=== PATIENT | female | born 1960 | race Caucasian/White ===

== ENCOUNTER 2017-07-04 09:10 | Emergency (ER) | payer MEDICAID ==
[~2017-07-04] VITALS: Ht 160 cm; Wt 78.2 kg
[~2017-07-04 09:10] MED LIST: NOCURR
[2017-07-04] MEDS ORDERED: METHOCARBAMOL 500 MG TABLET PO ONE (10:30)
[2017-07-04] MEDS ORDERED: KETOROLAC TROMETHAMINE 30 MG/ML VIAL IM ONE (10:30)
[2017-07-04 11:16] VITALS: BP 136/78
== END 2017-07-04 11:19 | disposition home or self-care (01) ==
LOC: EMS 09:12
DX: S46.911A Strain of unspecified muscle, fascia and tendon at shoulder and upper arm level, right arm, initial encounter (principal); X58.XXXA Exposure to other specified factors, initial encounter; Y93.E8 Activity, other personal hygiene; Y92.89 Other specified places as the place of occurrence of the external cause; Y99.8 Other external cause status
CPT/HCPCS: 96372; 99283; J1885

== ENCOUNTER 2020-11-17 15:47 | Emergency (ER) | payer MEDICAID ==
[~2020-11-17] VITALS: Ht 157.5 cm; Wt 75.0 kg
[2020-11-17] MEDS ORDERED: IBUPROFEN 400 MG TABLET PO ONE (16:45)
[2020-11-17] MEDS ORDERED: ACETAMINOPHEN 325 MG TABLET PO ONE (16:45)
[2020-11-17 17:40] VITALS: BP 122/78
== END 2020-11-17 17:44 | disposition home or self-care (01) ==
LOC: EMS 15:47
DX: M54.41 Lumbago with sciatica, right side (principal); Z90.89 Acquired absence of other organs
CPT/HCPCS: 99283

== ENCOUNTER 2023-04-25 14:56 | Emergency (ER) | payer MEDICAID, OTHER ==
[~2023-04-25] VITALS: Ht 160 cm; Wt 84.1 kg
[~2023-04-25 14:56] MED LIST changes: +CIPR-278 PO; +METR500 PO; -NOCURR
[2023-04-25 14:58] VITALS: TEMP 97.9
[2023-04-25] MEDS ORDERED: ONDANSETRON HCL 4 MG TABLET PO ONE (16:30)
[2023-04-25] MEDS ORDERED: ACETAMINOPHEN 500 MG TABLET PO ONE (16:30)
[2023-04-25] MEDS ORDERED: MECLIZINE HCL 25 MG TABLET PO ONE (16:30)
[2023-04-25 17:02] LABS: BASOPHILS % (AUTO) 0.4 % (0.0-2.0); EOSINOPHILS % (AUTO) 1.5 % (1.0-6.0); HEMATOCRIT 42.1 % (36-46); HEMOGLOBIN 14.2 g/dL (12.0-16.0); LYMPHOCYTES # (AUTO) 2.3 K/uL (1.0-4.8); LYMPHOCYTES % (AUTO) 27.1 % (22.0-44.0); MEAN CORPUSCULAR HEMOGLOBIN 29.8 pg (26.0-34.0); MEAN CORPUSCULAR HGB CONC 33.6 G/dL (31.0-37.0); MEAN CORPUSCULAR VOLUME 89 fL (80-100); MONOCYTES # (AUTO) 0.4 K/uL (0.1-1.0); NEUTROPHILS # (AUTO) 5.5 K/uL (1.8-7.7); PLATELET COUNT (AUTO) 302 K/uL (150-450); RED BLOOD CELL COUNT(AUTO) 4.76 MIL/uL (4.00-5.20); RED CELL DISTRIBUTION WIDTH 13.3 % (11.5-14.5)
[2023-04-25 17:11] LABS: ANION GAP 6 mmol/L (8-16); CALCIUM, TOTAL 9.8 mg/dL (8.8-10.5); CARBON DIOXIDE 30 mmol/L (22-29); CHLORIDE 101 mmol/L (98-107); CREATININE 0.61 mg/dL (0.60-1.30); GLOMERULAR FILTR. RATE CALC > 60 mL/min (>60); GLUCOSE,RANDOM 127 mg/dL (70-110); POTASSIUM 4.4 mmol/L (3.5-5.1); SODIUM SERUM 137 mmol/L (136-145)
[2023-04-25 17:18] LABS: ALANINE AMINOTRANSFERASE 36 U/L (12-78); ALKALINE PHOSPHATASE 98 U/L (46-116); ASPARTATE AMINOTRANSFERASE 17 U/L (15-37); BILIRUBIN,TOTAL 0.3 mg/dL (0.1-1.0); TOTAL PROTEIN, SERUM 7.8 g/dL (6.4-8.2)
[2023-04-25 18:45] VITALS: BP 144/79; PULSE 81; RESP 15
[2023-04-25] MEDS ORDERED: ACET-66 PO (18:47)
[2023-04-25] MEDS ORDERED: ONDA-104 PO (18:47)
[2023-04-25] MEDS ORDERED: MECL-134 PO (18:47)
== END 2023-04-25 18:55 | disposition home or self-care (01) ==
LOC: EMS 14:57
DX: R42 Dizziness and giddiness (principal); Z90.49 Acquired absence of other specified parts of digestive tract; Z98.51 Tubal ligation status
CPT/HCPCS: 99284; 70450; 80053; 84484; 85025; 36415; 93005; Q0162